=== PATIENT | male | born 1970 | race Caucasian/White ===

== ENCOUNTER 2022-07-21 10:37 | Day surgery (SDC) | payer BC, SELFPAY ==
--- NOTE | 2022-07-18 12:51 | HO.ANESPROP2 ---
Documented by User: Tricia Dasilva NP 07/18/22 12:51 HPI - Anesthesia Eval Consult details Narrative: 51yo M for Colonoscopy [facility] Past Medical History Medical History Asthma High blood pressure Sleep apnea with use of continuous positive airway pressure (CPAP) Surgical History Surgical History H/O eye surgery H/O hand surgery Social History Social History Patient Tobacco Use Status: Never used Tobacco Use of substances other than those prescribed or required for medical reasons: No Are you DNR?: No Advance Directives: No Advance Directives Information Provided: Yes Meds Allergies Allergy/AdvReac Type Severity Reaction Status Date / Time cat dander Allergy Unknown Verified 07/21/22 10:45 dog dander Allergy Unknown Verified 07/21/22 10:45 Home Medications Medication Instructions Recorded Confirmed Last Taken Type amlodipine 10 mg tablet 1 tab PO DAILY 07/18/22 07/21/22 07/21/22 09:00 History ascorbic acid (vitamin C) 500 mg 500 mg PO DAILY 07/18/22 07/21/22 Unknown History capsule,extended release (Vitamin C) cholecalciferol (vitamin D3) 125 125 mcg PO DAILY 07/18/22 07/21/22 Unknown History mcg (5,000 unit) tablet (Vitamin D3) diphenhydramine HCl 25 mg tablet 25 mg PO DAILY 07/18/22 07/21/22 Unknown History (Benadryl Allergy) fexofenadine 180 mg tablet 180 mg PO DAILY 07/18/22 07/21/22 Unknown History (Myrna Allergy) irbesartan 75 mg tablet 1 tab PO DAILY 07/18/22 07/21/22 07/21/22 09:00 History omega-3 fatty acids 1,000 mg PO DAILY 07/18/22 07/21/22 Unknown History sildenafil 25 mg tablet (Viagra) 25 mg PO DAILY PRN UNKNOWN 07/18/22 07/21/22 Unknown History Exam Exam Date and Time: July 18, 2022 1251 Assessment and Plan Assessment Anesthesia Assessment: Chart Reviewed Documented by User: Kylie Small MD 07/21/22 11:20 [facility] Past Medical History Medical History Asthma High blood pressure Sleep apnea with use of continuous positive airway pressure (CPAP) Functional capacity: wheelchair bound Surgical History Surgical History H/O eye surgery H/O hand surgery History of Problems with Anesthesia: No Social History Social History Patient Tobacco Use Status: Never used Tobacco Use of substances other than those prescribed or required for medical reasons: No Are you DNR?: No Advance Directives: No Advance Directives Information Provided: Yes Meds Allergies Allergy/AdvReac Type Severity Reaction Status Date / Time cat dander Allergy Unknown Verified 07/21/22 10:45 dog dander Allergy Unknown Verified 07/21/22 10:45 Home Medications Medication Instructions Recorded Confirmed Last Taken Type amlodipine 10 mg tablet 1 tab PO DAILY 07/18/22 07/21/22 07/21/22 09:00 History ascorbic acid (vitamin C) 500 mg 500 mg PO DAILY 07/18/22 07/21/22 Unknown History capsule,extended release (Vitamin C) cholecalciferol (vitamin D3) 125 125 mcg PO DAILY 07/18/22 07/21/22 Unknown History mcg (5,000 unit) tablet (Vitamin D3) diphenhydramine HCl 25 mg tablet 25 mg PO DAILY 07/18/22 07/21/22 Unknown History (Benadryl Allergy) fexofenadine 180 mg tablet 180 mg PO DAILY 07/18/22 07/21/22 Unknown History (Myrna Allergy) irbesartan 75 mg tablet 1 tab PO DAILY 07/18/22 07/21/22 07/21/22 09:00 History omega-3 fatty acids 1,000 mg PO DAILY 07/18/22 07/21/22 Unknown History sildenafil 25 mg tablet (Viagra) 25 mg PO DAILY PRN UNKNOWN 07/18/22 07/21/22 Unknown History Exam Airway Mallampati Class: III TM Dist: >3cm Neck ROM: Full Loose/Missing/Broken Teeth: No Heart: RRR Lungs: CTA Assessment and Plan Assessment Anesthesia Assessment: Anesthesia Plan Discussed Final Anesthetic Review History of Problems with Anesthesia: No NPO: Yes ASA Class: III Final Preanesthetic Review: Meds/Allgs Chart Reviewed, Consent Obtained/Reviewed and Anes Risks/Benef Reviewed Patient Risk: Intermediate Procedure Risk: Low Anesthetic Plan Anesthetic Plan: MAC: Disposition: Standard PACU
[2022-07-21 10:45] VITALS: BMI 41.3
[2022-07-21 10:54] VITALS: BP 141/88; PULSE 90; RESP 16; TEMP 37.1; O2SAT 98
[2022-07-21] MEDS: Lactated Ringers 1,000 ML 100 ML IVCONT (10:59)
[2022-07-21 11:57] VITALS: BP 119/70; PULSE 93; RESP 20; TEMP 36.4; O2SAT 96
--- NOTE | 2022-07-21 12:01 | PM.OP ---
Brief Operative Note Date of Service: 07/21/22 Pre-op diagnosis: Screening Post-op diagnosis: other (Diverticulosis) Procedure: Colonoscopy to the cecum and TI Surgeon: Pastor Roberts Anesthesia: MAC Was an Secondary History Teacher used for this Procedure?: No Estimated blood loss (mL): 0 Pathology: none sent Condition: stable Disposition: PACU
[2022-07-21 12:12] VITALS: BP 123/68; PULSE 77; RESP 20; O2SAT 98
[2022-07-21 12:27] VITALS: BP 134/89; PULSE 80; RESP 20; O2SAT 99
[2022-07-21 12:42] VITALS: BP 123/93; PULSE 74; RESP 18; TEMP 36.5; O2SAT 98
--- NOTE | 2022-07-21 13:30 | OP_ITS ---
SURGEON: Pastor Roberts MD INDICATIONS: The patient presents for evaluation of colorectal cancer screening. Full consent has been obtained from him for this, including risks of bleeding and perforation. PREOPERATIVE DIAGNOSIS: Colorectal cancer screening. POSTOPERATIVE DIAGNOSIS: PROCEDURE PERFORMED: Colonoscopy to the cecum and terminal ileum. ESTIMATED BLOOD LOSS: COMPLICATIONS: ANESTHESIA: Monitored anesthesia care. ASSISTANTS: SPECIMENS: POSTOPERATIVE DIAGNOSES: Colorectal cancer screening, mild sigmoid diverticulosis, internal hemorrhoids. DESCRIPTION OF PROCEDURE: The patient was placed in the left lateral decubitus position. The digital rectal exam revealed no abnormalities. The Olympus video pediatric colonoscope was entered into the rectum and advanced easily to the cecum. Once in the cecum, I did identify a normal-appearing cecal pouch with appendiceal orifice and a normal-appearing ileocecal valve. The terminal ileum was cannulated and appeared normal. The scope was withdrawn back in the colon. The entire cecum and ileocecal valve appeared normal. The scope was slowly withdrawn assessing all mucosal surfaces carefully. Preparation was excellent. I did not visualize any sign of polyps, colitis, nor angiodysplasia. There was a mild amount of sigmoid diverticulosis. In the rectum, scope was retroflexed visualizing internal hemorrhoids, but no other pathology. The rectal mucosa appeared normal. The scope was straightened and withdrawn from the patient. He tolerated the procedure well and was returned to the recovery area in stable condition. IMPRESSION: 1. Mild sigmoid diverticulosis. 2. Small internal hemorrhoids. PLAN: Given his negative exam and no family history of colon cancer, I would recommend a followup colonoscopy in 10 years for further screening. He would otherwise see me on a p.r.n. basis. Pastor Roberts MD RMVijaya/RAISAL / [id number]
== END 2022-07-21 13:00 | disposition home or self-care (01) ==
PROVIDERS: PCP Neuromusculoskeletal Medicine & OMM; Visit Provider Internal Medicine
PROC: 0DJD8ZZ Inspection of Lower Intestinal Tract, Via Natural or Artificial Opening Endoscopic (ICD-10-PCS; CPT 45378; principal; 2022-07-21 11:20)
DX: Z12.11 Encounter for screening for malignant neoplasm of colon (principal); K57.30 Diverticulosis of large intestine without perforation or abscess without bleeding; K64.8 Other hemorrhoids; I10 Essential (primary) hypertension; G47.33 Obstructive sleep apnea (adult) (pediatric); J45.909 Unspecified asthma, uncomplicated; Z99.89 Dependence on other enabling machines and devices; Z79.899 Other long term (current) drug therapy
CPT/HCPCS: 45378